=== PATIENT | female | born 1955 | race Hispanic/Latino ===

== ENCOUNTER 2018-09-20 12:37 | Emergency (ER) | payer OTHER ==
[2018-09-20] MEDS ORDERED: ONDANSETRON 4 MG/2 ML VIAL ONE (13:50)
[2018-09-20] MEDS ORDERED: NA CHLORIDE 0.9% 1,000 ML ONE (13:50)
[2018-09-20 14:06] LABS: Absolute Lymphocytes (CBC) 1.1 K/uL (0.7-4.9); Absolute Monocytes 0.3 K/uL (0.1-1.3); Basophils % 0.1 % (0-1.3); Eosinophils % 0.1 % (0-4.4); Hematocrit 45.9 % (36.0-45.0); Lymphocytes % 11.6 % (15.3-44.8); MPV 7.9 fL (7.6-11.3); Monocytes % 2.9 % (3.3-12.3); RBC Red Blood Cell Count 5.45 M/uL (3.86-4.86)
[2018-09-20 14:26] LABS: Albumin 3.6 g/dL (3.4-5.0); Bilirubin Direct 0.2 mg/dL (0-0.2); Bilirubin Total 1.8 mg/dL (0.2-1.0); Protein, Total 7.4 g/dL (6.4-8.2)
[2018-09-20 14:29] LABS: Potassium 2.9 mmol/L (3.5-5.1)
[2018-09-20 14:45] LABS: Urine Bacteria <20 /HPF (<20); Urine RBC NONE SEEN /HPF (NONE SEEN)
[2018-09-20 14:46] LABS: Urine Culture Reflex Order NOT NEEDED
[2018-09-20 14:53] LABS: Urine Blood NEGATIVE (NEG); Urine Glucose NEGATIVE (NEG); Urine Protein 1+ (NEG)
[2018-09-20 15:32] LABS: Urine White Blood Cell Casts OK
[2018-09-20 15:33] LABS: Blood Morphology Comment NOT SEEN (NOT SEEN); Platelet Estimate ADEQ
[2018-09-20] MEDS ORDERED: KCL 20 MEQ/100 mL IVPB 20 MEQ/100 ML BAG IV ONE (16:15)
[2018-09-20] MEDS ORDERED: NA CHLORIDE 0.9% 500 ML ONE (16:16)
[2018-09-20] MEDS ORDERED: POTASSIUM 25 MEQ EFFERV TAB ONE (16:27)
--- NOTE | 2018-09-20 17:17 | EDPHYS ---
Physician Documentation [facility] Name: Ana Stout Age: 63 yrs Sex: Female : 1955 Arrival Date: 09/20/2018 Time: 12:39 Bed 24 Private MD: ED Physician Gerry Kerr HPI: 09/20 14:15 This 63 yrs old Female presents to ER via Ambulatory with complaints of pm1 Vomiting/Diarrhea, Dizziness. 14:15 The patient presents to the emergency department with vomiting, 2 times since the onset pm1 of symptoms, diarrhea, 3 times since the onset of symptoms. Onset: The symptoms/episode began/occurred today, at 04:00. Possible causes: unknown. The symptoms are aggravated by nothing. The symptoms are alleviated by nothing. Associated signs and symptoms: Pertinent negatives: abdominal pain, fever. Severity of symptoms: Pain is currently a 0 / 10. The patient has not experienced similar symptoms in the past. The patient has not recently seen a physician. Historical: - Allergies: 12:54 steroids; hj - PMHx: 12:54 colon cancer; hj - PSHx: 12:54 Tonsillectomy; Cholecystectomy; Hysterectomy; Knee surgery; hj - Immunization history:: Adult Immunizations unknown. - Social history:: Smoking status: Patient/guardian denies using tobacco. - Ebola Screening: : Patient negative for fever greater than or equal to 101.5 degrees Fahrenheit, and additional compatible Ebola Virus Disease symptoms Patient denies exposure to infectious person Patient denies travel to an Ebola-affected area in the 21 days before illness onset. ROS: 14:15 Constitutional: Negative for fever, chills, and weight loss, Eyes: Negative for injury, pm1 pain, redness, and discharge, ENT: Negative for injury, pain, and discharge, Neck: Negative for injury, pain, and swelling, Cardiovascular: Negative for chest pain, palpitations, and edema, Respiratory: Negative for shortness of breath, cough, wheezing, and pleuritic chest pain. 14:15 Back: Negative for injury and pain, : Negative for injury, bleeding, discharge, and swelling, MS/Extremity: Negative for injury and deformity, Skin: Negative for injury, rash, and discoloration. 14:15 Abdomen/GI: Positive for nausea, vomiting, and diarrhea, Negative for abdominal pain. 14:15 Neuro: Positive for dizziness, Negative for numbness, tingling, weakness. Exam: 14:15 Constitutional: This is a well developed, well nourished patient who is awake, alert, pm1 and in no acute distress. Head/Face: Normocephalic, atraumatic. Eyes: Pupils equal round and reactive to light, extra-ocular motions intact. Lids and lashes normal. Conjunctiva and sclera are non-icteric and not injected. Cornea within normal limits. Periorbital areas with no swelling, redness, or edema. ENT: Nares patent. No nasal discharge, no septal abnormalities noted. Tympanic membranes are normal and external auditory canals are clear. Oropharynx with no redness, swelling, or masses, exudates, or evidence of obstruction, uvula midline. Mucous membranes moist. Neck: Trachea midline, no thyromegaly or masses palpated, and no cervical lymphadenopathy. Supple, full range of motion without nuchal rigidity, or vertebral point tenderness. No Meningismus. Chest/axilla: Normal chest wall appearance and motion. Nontender with no deformity. No lesions are appreciated. Cardiovascular: Regular rate and rhythm with a normal S1 and S2. No gallops, murmurs, or rubs. Normal PMI, no JVD. No pulse deficits. Respiratory: Lungs have equal breath sounds bilaterally, clear to auscultation and percussion. No rales, rhonchi or wheezes noted. No increased work of breathing, no retractions or nasal flaring. Abdomen/GI: Soft, non-tender, with normal bowel sounds. No distension or tympany. No guarding or rebound. No evidence of tenderness throughout. Back: No spinal tenderness. No costovertebral tenderness. Full range of motion. Skin: Warm, dry with normal turgor. Normal color with no rashes, no lesions, and no evidence of cellulitis. MS/ Extremity: Pulses equal, no cyanosis. Neurovascular intact. Full, normal range of motion. 14:15 Neuro: Orientation: is normal, Mentation: is normal, Cerebellar function: normal finger to nose testing, Motor: is normal, moves all fours, Sensation: is normal, no obvious gross deficits. Vital Signs: 12:54 BP 173 / 82; Pulse 57; Resp 18; Temp 97.7(O); Pulse Ox 97% on R/A; Weight 83.01 kg; hj Height 5 ft. 3 in. (160.02 cm); Pain 0/10; 14:17 BP 161 / 86; Pulse 72; Resp 11; Pulse Ox 95% on R/A; Pain 0/10; ls4 18:10 BP 134 / 75; Pulse 89; Resp 16; Pulse Ox 100% on R/A; Pain 0/10; iw 12:54 Body Mass Index 32.42 (83.01 kg, 160.02 cm) hj MDM: 13:12 Patient medically screened. pm1 17:15 Data reviewed: vital signs. Data interpreted: Pulse oximetry: on room air is 95 %. pm1 Interpretation: normal. Counseling: I had a detailed discussion with the patient and/or guardian regarding: the historical points, exam findings, and any diagnostic results supporting the discharge/admit diagnosis, lab results, the need for outpatient follow up, to return to the emergency department if symptoms worsen or persist or if there are any questions or concerns that arise at home. 09/20 12:57 Order name: Urine Microscopic Only; Complete Time: 15:24 09/20 13:16 Order name: Basic Metabolic Panel; Complete Time: 15:24 pm1 09/20 13:16 Order name: CBC with Diff; Complete Time: 15:34 pm1 09/20 13:16 Order name: Creatinine for Radiology; Complete Time: 15:24 pm1 09/20 13:16 Order name: Hepatic Function; Complete Time: 15:24 pm1 09/20 13:16 Order name: Lipase; Complete Time: 15:24 pm1 09/20 12:57 Order name: Urine Dipstick-Ancillary (obtain specimen); Complete Time: 13:19 09/20 13:16 Order name: IV Saline Lock; Complete Time: 14:02 pm1 09/20 13:22 Order name: Urine Dipstick--Ancillary (enter results); Complete Time: 15:24 09/20 14:11 Order name: CBC Smear Scan; Complete Time: 15:34 EDTN 09/20 13:16 Order name: Labs collected and sent; Complete Time: 14:02 pm1 Administered Medications: 13:30 Drug: NS 0.9% 1000 ml Route: IV; Rate: 1000 ml; Site: right antecubital; ls4 18:20 Follow up: IV Status: Completed infusion iw 13:30 Drug: Zofran 4 mg Route: IVP; Site: right antecubital; ls4 14:22 Follow up: Response: No adverse reaction; Marked relief of symptoms ls4 16:09 Drug: Potassium Chloride 20 mEq Route: IV; Rate: calculated rate; Site: right ls4 antecubital; 18:19 Follow up: IV Status: Completed infusion iw 16:58 Drug: Potassium Effervescent Tablet 50 mEq Route: PO; ls4 18:19 Follow up: Response: No adverse reaction iw Disposition: 18:43 Co-signature as Attending Physician, Gerry Kerr MD. rn Disposition: 09/20/18 17:16 Discharged to Home. Impression: Vomiting, Hypokalemia. - Condition is Stable. - Discharge Instructions: Potassium Content of Foods, Nausea and Vomiting, Adult, Hypokalemia. - Prescriptions for Zofran 4 mg Oral Tablet - take 1 tablet by ORAL route every 8 hours As needed; 20 tablet. - Medication Reconciliation Form, Thank You Letter, Antibiotic Education, Prescription Opioid Use form. - Follow up: Emergency Department; When: As needed; Reason: Worsening of condition. Follow up: Private Physician; When: 2 - 3 days; Reason: Recheck today's complaints, Continuance of care, Re-evaluation by your physician. - Problem is new. - Symptoms have improved. Signatures: Dispatcher [employer] Shelly Sanderson, RN JAY Gerry Kerr MD MD rn Joaquin, Henry, RN RN hj Marinas, Patrick, ADOLFO OIL SPRAYER pm1 Selin Whitlock, RN RN ls4 Corrections: (The following items were deleted from the chart) 18:20 17:16 09/20/2018 17:16 Discharged to Home. Impression: Vomiting; Hypokalemia. Condition iw is Stable. Forms are Medication Reconciliation Form, Thank You Letter, Antibiotic Education, Prescription Opioid Use. Follow up: Emergency Department; When: As needed; Reason: Worsening of condition. Follow up: Private Physician; When: 2 - 3 days; Reason: Recheck today's complaints, Continuance of care, Re-evaluation by your physician. Problem is new. Symptoms have improved. pm1
--- NOTE | 2018-09-20 17:17 | ER ---
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 Transition of care: patient was not received from another setting of care. Onset of symptoms was September 20, 2018. Risk Assessment: Do you want to hurt yourself or someone else? Patient reports no desire to harm self or others. Initial Sepsis Screen: Does the patient meet any 2 criteria? No. Patient's initial sepsis screen is negative. Does the patient have a suspected source of infection? No. Patient's initial sepsis screen is negative. Care prior to arrival: None. 12:51 Method Of Arrival: Ambulatory 12:51 Acuity: SUJEY 3 hj Triage Assessment: 13:02 General: Appears uncomfortable, Behavior is calm, cooperative. Pain: Denies pain. ls4 Neuro: No deficits noted. Cardiovascular: No deficits noted. Respiratory: No deficits noted. GI: Abdomen is non-distended, Bowel sounds present X 4 quads. Reports diarrhea, nausea, since 4 am Patient currently denies abdominal pain. Derm: Skin is pink, warm \T\ dry. Historical: - Allergies: 12:54 steroids; hj - PMHx: 12:54 colon cancer; hj - PSHx: 12:54 Tonsillectomy; Cholecystectomy; Hysterectomy; Knee surgery; hj - Immunization history:: Adult Immunizations unknown. - Social history:: Smoking status: Patient/guardian denies using tobacco. - Ebola Screening: : Patient negative for fever greater than or equal to 101.5 degrees Fahrenheit, and additional compatible Ebola Virus Disease symptoms Patient denies exposure to infectious person Patient denies travel to an Ebola-affected area in the 21 days before illness onset. Screenin:14 Abuse screen: Denies threats or abuse. Denies injuries from another. Nutritional ls4 screening: No deficits noted. Tuberculosis screening: No symptoms or risk factors identified. Fall Risk None identified. Assessment: 18:18 Reassessment: Patient appears in no apparent distress at this time. Patient and/or iw family updated on plan of care and expected duration. Pain level reassessed. Patient is alert, oriented x 3, equal unlabored respirations, skin warm/dry/pink. Patient states feeling better. Patient states symptoms have improved. Vital Signs: 12:54 BP 173 / 82; Pulse 57; Resp 18; Temp 97.7(O); Pulse Ox 97% on R/A; Weight 83.01 kg; hj Height 5 ft. 3 in. (160.02 cm); Pain 0/10; 14:17 BP 161 / 86; Pulse 72; Resp 11; Pulse Ox 95% on R/A; Pain 0/10; ls4 18:10 BP 134 / 75; Pulse 89; Resp 16; Pulse Ox 100% on R/A; Pain 0/10; iw 12:54 Body Mass Index 32.42 (83.01 kg, 160.02 cm) hj ED Course: 12:39 Patient arrived in ED. mr 12:53 Triage completed. hj 12:55 Arm band placed on right wrist. hj 12:58 Kati Rondon FNP-C is PHCP. snw 12:59 Gerry Kerr MD is Attending Physician. snw 13:03 Bed in low position. Call light in reach. Side rails up X 1. Adult w/ patient. ls4 13:06 Konrad Andino NP is PHCP. pm1 13:06 Gerry Kerr MD is Attending Physician. pm1 13:13 Selin Whitlock, JAY is Primary Nurse. ls4 13:29 Initial lab(s) drawn, by nc, sent to lab. Urine collected: clean catch specimen, clear. ls4 Inserted saline lock: 20 gauge in right antecubital area, using aseptic technique. Blood collected. 14:14 No provider procedures requiring assistance completed. ls4 18:19 IV discontinued, intact, bleeding controlled, No redness/swelling at site. Pressure iw dressing applied. Administered Medications: 13:30 Drug: NS 0.9% 1000 ml Route: IV; Rate: 1000 ml; Site: right antecubital; ls4 18:20 Follow up: IV Status: Completed infusion iw 13:30 Drug: Zofran 4 mg Route: IVP; Site: right antecubital; ls4 14:22 Follow up: Response: No adverse reaction; Marked relief of symptoms ls4 16:09 Drug: Potassium Chloride 20 mEq Route: IV; Rate: calculated rate; Site: right ls4 antecubital; 18:19 Follow up: IV Status: Completed infusion iw 16:58 Drug: Potassium Effervescent Tablet 50 mEq Route: PO; ls4 18:19 Follow up: Response: No adverse reaction iw Outcome: 17:16 Discharge ordered by MD. pm1 18:19 Discharged to home via wheelchair, with family. iw 18:19 Condition: good 18:19 Discharge instructions given to patient, family, Instructed on discharge instructions, follow up and referral plans. medication usage, Demonstrated understanding of instructions, follow-up care, medications, Prescriptions given X 1. 18:20 Patient left the ED. iw Signatures: Kati Rondon, CRATE OPENER-C CRATE OPENER-Csnw Fiona Zheng Shelly Petersen RN RN iw Brandon Fox RN RN Konrad Andino NP SUPERINTENDENT LOGGING pm1 Selin Whitlock RN RN ls4 Corrections: (The following items were deleted from the chart) 12:56 12:54 Pulse 57bpm; Resp 18bpm; Pulse Ox 97% RA; Temp 97.7F Oral; 83.01 kg; Height 5 ft. hj 3 in.; BMI: 32.4; Pain 0/10; hj 13:03 12:51 Presenting complaint: sister as translator/interpreter: at around 4 am today she started hj vomiting (x2) diarrhea (x3); denies abd pain; reports chills; reports nausea; hj
[2018-09-20 18:25] VITALS: TEMP 97.7
[2018-09-20 18:27] VITALS: BP 134/75; O2SAT 100
== END 2018-09-20 18:20 | disposition home or self-care (01) ==
LOC: ER 12:37
DX: E87.6 Hypokalemia (principal); Z88.8 Allergy status to other drugs, medicaments and biological substances; Z85.038 Personal history of other malignant neoplasm of large intestine
CPT/HCPCS: 96365; 96361; 85025; 80048; 36415; 80076; 83690; 96375; 99284; 96366; J7030; J2405; 81003; 81015

== ENCOUNTER 2021-10-19 11:36 | Emergency (ER) | payer OTHER ==
[2021-10-19 13:24] LABS: Absolute Lymphocytes (CBC) 2.3 K/uL (0.7-4.9); Hematocrit 49.5 % (36.0-45.0); Lymphocytes % 21.2 % (15.3-44.8); MCV 83.9 fL (80-100); MPV 7.4 fL (7.6-11.3)
[2021-10-19 13:38] LABS: Potassium 3.4 mmol/L (3.5-5.1); Troponin High Sensitivity 5.1 pg/mL (<58.9)
--- NOTE | 2021-10-19 13:43 | RAD REPORT ---
EXAM DESCRIPTION: RAD - Chest Single View - 10/19/2021 1:03 pm CLINICAL HISTORY: N/V/D COMPARISON: Portable November 2013 TECHNIQUE: AP portable chest image was obtained 10/19/2021 1:03 pm . FINDINGS: No focal lung parenchymal process seen. Interstitial pattern not significantly different f rom comparison. Heart and vasculature are normal. No measurable pleural effusion and no pneumothorax. No acute bony abnormality seen. No acute aortic findings suspected. IMPRESSION: No acute cardiopulmonary process.
[2021-10-19] MEDS ORDERED: FAMOTIDINE 20 MG/2 ML VIAL IV ONE (15:41)
[2021-10-19] MEDS ORDERED: ONDANSETRON 4 MG/2 ML VIAL ONE (15:41)
[2021-10-19] MEDS ORDERED: NA CHLORIDE 0.9% 1,000 ML ONE (15:42)
--- NOTE | 2021-10-19 16:27 | EDPHYS ---
Physician Documentation [facility] Name: Ana Stout Age: 66 yrs Sex: Female : 1955 Arrival Date: 10/19/2021 Time: 11:39 Bed 5 Private MD: ED Physician Valentín Leon HPI: 10/19 16:45 This 66 yrs old Female presents to ER via Ambulatory with complaints of kdr Nausea/Vomiting/Diarrhea. 16:45 Onset: The symptoms/episode began/occurred gradually, 3 day(s) ago. Severity of kdr symptoms: At their worst the symptoms were mild moderate just prior to arrival, in the emergency department the symptoms are unchanged. The patient has not experienced similar symptoms in the past. The patient has not recently seen a physician. Patient reports that she has been generally ill for 3 days. She has had subjective fevers. She also reports abdominal pain with nausea, vomiting and diarrhea. She generally has malaise myalgias and arthralgias. She does not appear toxic but she is mildly uncomfortable. She does not require emergent intervention on initial presentation. Historical: - Allergies: 12:11 steroids; rousseau - PMHx: 12:11 colon cancer; rousseau - Immunization history:: Adult Immunizations up to date. - Social history:: Smoking status: Patient denies any tobacco usage or history of. ROS: 16:45 Constitutional: Negative for objective fever, chills, and weight loss, Eyes: Negative kdr for injury, pain, redness, and discharge, Neck: Negative for injury, pain, and swelling, Cardiovascular: Negative for chest pain, palpitations, and edema, Respiratory: Negative for shortness of breath, cough, wheezing, and pleuritic chest pain, Back: Negative for injury and pain, : Negative for injury, bleeding, discharge, and swelling, MS/Extremity: Negative for injury and deformity, Skin: Negative for injury, rash, and discoloration, Neuro: Negative for headache, weakness, numbness, tingling, and seizure activity. Allergy/Immunology: Negative for hives, rash, and allergies, Endocrine: Negative for neck swelling, polydipsia, polyuria, polyphagia, and marked weight changes, Hematologic/Lymphatic: Negative for swollen nodes, abnormal bleeding, and unusual bruising. 16:45 Abdomen/GI: Positive for nausea, vomiting, and diarrhea, Negative for constipation, anorexia, dysphagia, hematemesis, black/tarry stool, rectal pain, rectal bleeding. Exam: 13:30 ECG was reviewed by the Attending Physician. kdr 16:45 Constitutional: This is a well developed, well nourished patient who is awake, alert, kdr and in no very mild distress. Vital Signs: 12:07 BP 177 / 84; Pulse 92; Resp 18; Temp 98.1(O); Pulse Ox 98% ; Weight 85.73 kg; Height 5 rousseau ft. 4 in. (162.56 cm); 13:58 BP 132 / 87; Pulse 90; Resp 12; Pulse Ox 97% on R/A; vg1 15:47 BP 137 / 76; Pulse 80; Resp 12; Pulse Ox 97% on R/A; vg1 12:07 Body Mass Index 32.44 (85.73 kg, 162.56 cm) rousseau MDM: 16:26 Patient medically screened. kdr 16:45 Data reviewed: vital signs, nurses notes, lab test result(s), radiologic studies. kdr Counseling: I had a detailed discussion with the patient and/or guardian regarding: the historical points, exam findings, and any diagnostic results supporting the discharge/admit diagnosis, lab results, radiology results, the need for outpatient follow up. 10/19 12:33 Order name: Basic Metabolic Panel; Complete Time: 15:00 kdr 10/19 12:33 Order name: CBC with Diff; Complete Time: 15:00 kdr 10/19 12:33 Order name: Troponin HS; Complete Time: 15:00 [facility] 10/19 12:33 Order name: XRAY Chest (1 view); Complete Time: 15:00 kdr 10/19 12:33 Order name: EKG; Complete Time: 12:33 kdr 10/19 12:33 Order name: Cardiac monitoring; Complete Time: 13:24 kdr 10/19 12:33 Order name: EKG - Nurse/Tech; Complete Time: 13:18 kdr 10/19 12:33 Order name: IV Saline Lock; Complete Time: 13:24 kdr 10/19 12:33 Order name: Labs collected and sent; Complete Time: 13:24 kdr 10/19 12:33 Order name: O2 Per Protocol; Complete Time: 13:24 [facility] 10/19 12:33 Order name: O2 Sat Monitoring; Complete Time: 13:24 kdr EC:30 Rate is 90 beats/min. Rhythm is regular, Sinus Rhythm with No ectopy. QRS Fertile is kdr Normal. OH interval is normal. QRS interval is normal. Clinical impression: NSR w/ Non-specific ST/T Changes. Administered Medications: 15:38 Drug: Zofran (Ondansetron) 4 mg Route: IVP; Site: right antecubital; vg1 16:35 Follow up: Response: No adverse reaction; Nausea is decreased jl7 15:38 Drug: NS 0.9% 1000 ml Route: IV; Rate: 1 bolus; Site: right antecubital; vg1 16:34 Follow up: Response: No adverse reaction; IV Status: Completed infusion; IV Intake: jl7 1000ml 15:40 Drug: Pepcid (famotidine) 20 mg Route: IVP; Site: right antecubital; vg1 16:34 Follow up: Response: No adverse reaction jl7 Disposition Summary: 10/19/21 16:26 Discharge Ordered Location: Home kdr Problem: new kdr Symptoms: have improved kdr Condition: Stable kdr Diagnosis - Nausea with vomiting, unspecified kdr - Diarrhea, unspecified kdr Followup: kdr - With: Private Physician - When: 2 - 3 days - Reason: If symptoms return, Further diagnostic work-up, Recheck today's complaints, Continuance of care, Re-evaluation by your physician Discharge Instructions: - Discharge Summary Sheet kdr - Nausea and Vomiting, Adult, [id number] kdr - Diarrhea, Adult, [id number] kdr Forms: - Medication Reconciliation Form kdr - Thank You Letter kdr Prescriptions: - Pepcid 20 mg Oral Tablet - take 1 tablet by ORAL route every 12 hours for 5 days; 10 tablet; Refills: 0, kdr Product Selection Permitted - Zofran 4 mg Oral Tablet - take 1 tablet by ORAL route every 4-6 hours As needed; 12 tablet; Refills: 0, kdr Product Selection Permitted Signatures: Dispatcher [employer] Valentín Martínez MD MD kdr Garcia, Victoria RN RN vg1 Sisi-StagerElif RN RN ha Leal, Jahala RN jl7
--- NOTE | 2021-10-19 16:27 | ER ---
Nurse's Notes [facility] Name: Ana Stout Age: 66 yrs Sex: Female : 1955 Arrival Date: 10/19/2021 Time: 11:39 Bed 5 Private MD: Diagnosis: Nausea with vomiting, unspecified;Diarrhea, unspecified Presentation: 10/19 12:07 Chief complaint: Patient states: pt reports abdomina pain n/v/d x3 days. Coronavirus rousseau screen: Vaccine status: Patient reports receiving the 2nd dose of the covid vaccine. Ebola Screen: Patient denies travel to an Ebola-affected area in the 21 days before illness onset. Initial Sepsis Screen: Does the patient meet any 2 criteria? HR > 90 bpm. Does the patient have a suspected source of infection? No. Patient's initial sepsis screen is negative. Risk Assessment: Do you want to hurt yourself or someone else? Patient reports no desire to harm self or others. Onset of symptoms was October 16, 2021. 12:07 Method Of Arrival: Ambulatory rousseau 12:07 Acuity: SUJEY 3 rousseau Triage Assessment: 12:11 General: Appears in no apparent distress. Behavior is calm, cooperative. Pain: rousseau Complains of pain in abdomen. GI: Reports diarrhea, nausea, Pain is 6 out of 10 on a pain scale. vomiting. Historical: - Allergies: 12:11 steroids; rousseau - PMHx: 12:11 colon cancer; rousseau - Immunization history:: Adult Immunizations up to date. - Social history:: Smoking status: Patient denies any tobacco usage or history of. Screenin:04 Abuse screen: Denies threats or abuse. Nutritional screening: No deficits noted. vg1 Tuberculosis screening: No symptoms or risk factors identified. Fall Risk No fall in past 12 months (0 pts). No secondary diagnosis (0 pts). IV access (20 points). Ambulatory Aid- None/Bed Rest/Nurse Assist (0 pts). Gait- Normal/Bed Rest/Wheelchair (0 pts) Mental Status- Oriented to own ability (0 pts). Total Maldonado Fall Scale indicates No Risk (0-24 pts). Assessment: 14:02 General: Appears in no apparent distress. comfortable, Behavior is calm, cooperative. vg1 Pain: Denies pain. Complains of pain in epigastric area and right upper quadrant Pain currently is 0 out of 10 on a pain scale. Pain began 2-3 days ago. Neuro: Level of Consciousness is awake, alert, obeys commands, Oriented to person, place, time, situation. Cardiovascular: Patient's skin is warm and dry. Respiratory: Airway is patent Respiratory effort is even, unlabored. GI: Abdomen is round non-distended, Abd is soft and non tender X 4 quads. Reports diarrhea, nausea, vomiting, since Tuesday. : No signs and/or symptoms were reported regarding the genitourinary system. EENT: No signs and/or symptoms were reported regarding the EENT system. Derm: Skin is intact, is healthy with good turgor. Musculoskeletal: Circulation, motion, and sensation intact. 15:10 Reassessment: Patient appears in no apparent distress at this time. Patient and/or vg1 family updated on plan of care and expected duration. Pain level reassessed. Patient is alert, oriented x 3, equal unlabored respirations, skin warm/dry/pink. Pt states nausea and stomach cramps. 16:00 Reassessment: Patient appears in no apparent distress at this time. No changes from jl7 previously documented assessment. Patient and/or family updated on plan of care and expected duration. Pain level reassessed. Patient is alert, oriented x 3, equal unlabored respirations, skin warm/dry/pink. Vital Signs: 12:07 BP 177 / 84; Pulse 92; Resp 18; Temp 98.1(O); Pulse Ox 98% ; Weight 85.73 kg; Height 5 rousseau ft. 4 in. (162.56 cm); 13:58 BP 132 / 87; Pulse 90; Resp 12; Pulse Ox 97% on R/A; vg1 15:47 BP 137 / 76; Pulse 80; Resp 12; Pulse Ox 97% on R/A; vg1 12:07 Body Mass Index 32.44 (85.73 kg, 162.56 cm) rousseau ED Course: 11:39 Patient arrived in ED. jj6 12:11 Triage completed. rousseau 12:11 Arm band placed on. rousseau 12:32 Valentín Leon MD is Attending Physician. kdr 12:35 Hiram White RN is Primary Nurse. jl7 13:05 XRAY Chest (1 view) In Process Unspecified. EDMS 13:05 Client placed on continuous cardiac and pulse oximetry monitoring. NIBP monitoring jl7 applied. 13:05 Initial lab(s) drawn, by sc, sent to lab. Inserted saline lock: 20 gauge in right jl7 forearm, using aseptic technique. Blood collected. 13:18 EKG done, by ED staff, reviewed by Valentín Leon MD. jw7 14:04 Patient has correct armband on for positive identification. Bed in low position. Call vg1 light in reach. Side rails up X 1. Adult w/ patient. 16:35 No provider procedures requiring assistance completed. IV discontinued, intact, jl7 bleeding controlled, No redness/swelling at site. Pressure dressing applied. Administered Medications: 15:38 Drug: Zofran (Ondansetron) 4 mg Route: IVP; Site: right antecubital; vg1 16:35 Follow up: Response: No adverse reaction; Nausea is decreased jl7 15:38 Drug: NS 0.9% 1000 ml Route: IV; Rate: 1 bolus; Site: right antecubital; vg1 16:34 Follow up: Response: No adverse reaction; IV Status: Completed infusion; IV Intake: jl7 1000ml 15:40 Drug: Pepcid (famotidine) 20 mg Route: IVP; Site: right antecubital; vg1 16:34 Follow up: Response: No adverse reaction jl7 Medication: 14:07 VIS not applicable for this client. vg1 Intake: 16:34 IV: 1000ml; Total: 1000ml. jl7 Outcome: 16:26 Discharge ordered by . kdr 16:35 Discharged to home ambulatory, with family. jl7 16:35 Condition: stable 16:35 Discharge instructions given to patient, Instructed on discharge instructions, follow up and referral plans. medication usage, Demonstrated understanding of instructions, follow-up care, medications, Prescriptions given X 2. 16:35 Patient left the ED. jl7 Signatures: Dispatcher [employer] [facility] Valentín Leon MD MD kdr Leal, Jahala RN RN jl7 Nany Barrios RN RN vg1 Tonya Montenegro jj6 Sisi-StagerElif RN RN ha Waits, Jodi jw7
[2021-10-19 16:51] VITALS: TEMP 98.1
[2021-10-19 16:53] VITALS: O2SAT 97
[2021-10-19 16:54] VITALS: BP 137/76
--- NOTE | 2021-10-20 07:57 | EKG ---
Test Date: 2021-10-19 Test Time: 13:19:12 Firewall Security Engineer: EFRAIN MEASUREMENT RESULTS: Intervals: Rate: 90 RI: 150 QRSD: 88 QT: 370 QTc: 452 [place]: P: 49 RI: 150 QRS: -20 T: 21 INTERPRETIVE STATEMENTS: Normal sinus rhythm Possible Left atrial enlargement Left ventricular hypertrophy Abnormal ECG Compared to ECG 06/18/2014 11:42:58 No significant changes Electronically Signed On 10-20-21 07:55:30 CDT by Rodrigo Bowens
== END 2021-10-19 16:35 | disposition home or self-care (01) ==
LOC: ER 11:36
DX: R11.2 Nausea with vomiting, unspecified (principal); R19.7 Diarrhea, unspecified; R10.11 Right upper quadrant pain; Z88.8 Allergy status to other drugs, medicaments and biological substances
CPT/HCPCS: 96361; 93005; 85025; 80048; 36415; 84484; 71045; 96375; 96374; 99284; J7030; J2405; J3490